=== PATIENT | male | born 1985 | race Caucasian/White ===

== ENCOUNTER 2021-09-29 13:20 | Emergency (ER) | payer BC ==
[2021-09-29 13:32] VITALS: TEMP 98.1
[2021-09-29 14:28] LABS: Partial Thromboplastin Time 23.8 sec (22.0-30.0); Prothrombin Time 10.5 sec (9.0-12.0)
[2021-09-29 14:36] LABS: Basophils % (A) 0 %; Eosinophils # (A) 0.3 k/uL (0-0.7); Eosinophils % (A) 3 %; HCT 46.1 % (39.0-53.0); HGB 16.3 gm/dL (13.0-17.5); Lymphocytes # (A) 2.7 k/uL (1.0-4.8); Lymphocytes % (A) 29 %; MCHC 35.3 g/dL (31.0-37.0); MCV 87.9 fL (80.0-100.0); Mean Platelet Volume 6.5; Monocytes # (A) 0.5 k/uL (0-1.0); Monocytes % (A) 6 %; Neutrophils # (A) 5.5 k/uL (1.3-7.7); Neutrophils % (A) 59 %; Platelet Count 250 k/uL (150-450); RBC 5.25 m/uL (4.30-5.90); RDW 12.6 % (11.5-15.5); WBC 9.4 k/uL (3.8-10.6)
[2021-09-29 14:37] LABS: ALT 93 U/L (4-49); AST 41 U/L (17-59); African American GFR (CKD) >90 (>60 ml/min/1.73 sqM); Albumin 4.9 g/dL (3.5-5.0); Alkaline Phosphatase 54 U/L (38-126); Anion Gap 11 mmol/L; Blood Urea Nitrogen 10 mg/dL (9-20); Calcium 9.6 mg/dL (8.4-10.2); Carbon Dioxide 25 mmol/L (22-30); Chloride 101 mmol/L (98-107); Glucose 74 mg/dL (74-99); Magnesium 2.2 mg/dL (1.6-2.3); Non-African American GFR(CKD) >90 (>60 ml/min/1.73 sqM); Potassium 4.1 mmol/L (3.5-5.1); Sodium 137 mmol/L (137-145); Total Bilirubin 0.9 mg/dL (0.2-1.3); Total Protein 8.1 g/dL (6.3-8.2)
--- NOTE | 2021-09-29 14:38 | XR ---
EXAMINATION TYPE: XR chest 2V DATE OF EXAM: 09/29/2021 COMPARISON: NONE HISTORY: Chest pain TECHNIQUE: Frontal and lateral views of the chest are obtained. FINDINGS: There is no focal air space opacity, pleural effusion, or pneumothorax seen. The cardiac silhouette size is within normal limits. Patient is slightly rotated, there may be spinal curvature. The osseous structures are intact. IMPRESSION: No acute cardiopulmonary process.
--- NOTE | 2021-09-29 14:42 | CT ---
EXAMINATION TYPE: CT brain wo con DATE OF EXAM: 09/29/2021 COMPARISON: none HISTORY: headaches and blurred vision CT DLP: 1084.[address] of the brain was performed. The ventricles, basal cisterns and sulci overlying the cerebral convexities demonstrate a normal appe arance. There is no evidence for intracranial hemorrhage or sulcal effacement. No mass effects are seen. Osseous calvarium is intact. If symptoms persist consider MRI as clinically warranted. IMPRESSION: 1. No acute intracranial process is seen at this time.
[2021-09-29] MEDS ORDERED: SODIUM CHLORIDE 0.9% 1,000 ML IV ONE (15:20)
[2021-09-29] MEDS ORDERED: KETOROLAC 15 MG/ML 1 ML VIAL IVP STA (15:20)
--- NOTE | 2021-09-29 17:05 | ED ---
General Adult HPI - General Chief complaint: Chest Pain Stated complaint: Chest Pain, Arm numbness, Blurry Vision Time Seen by Provider: 09/29/21 13:44 Source: patient, RN notes reviewed, old records reviewed Mode of arrival: wheelchair Limitations: no limitations - History of Present Illness Initial comments: 36-year-old male presenting for evaluation chest pain. Patient states he has a squeezing sensation in the left anterior chest. This been present throughout the day today. He had some associated tingling in the left arm. Additionally complained of headache which was predominantly frontal and retro-orbital. Patient denies any associated vomiting or diaphoresis. He has no previous history of CAD. Patient denies associated dyspnea. - Related Data Home Medications Medication Instructions Recorded Confirmed No Known Home Medications 09/29/21 09/29/21 Allergies Allergy/AdvReac Type Severity Reaction Status Date / Time No Known Allergies Allergy Verified 09/29/21 16:30 Review of Systems ROS Statement: Those systems with pertinent positive or pertinent negative responses have been documented in the HPI. ROS Other: All systems not noted in ROS Statement are negative. Past Medical History Past Medical History: No Reported History Additional Past Medical History / Comment(s): herniated disc Past Surgical History: No Surgical Hx Reported Past Psychological History: Depression Smoking Status: Vaper Past Alcohol Use History: Occasional Past Drug Use History: Marijuana General Exam Limitations: no limitations General appearance: alert, in no apparent distress Head exam: Present: atraumatic, normocephalic Eye exam: Present: normal appearance, PERRL ENT exam: Present: normal exam Neck exam: Present: normal inspection Respiratory exam: Present: normal lung sounds bilaterally. Absent: respiratory distress, wheezes Cardiovascular Exam: Present: regular rate, normal rhythm GI/Abdominal exam: Present: soft. Absent: distended, tenderness, guarding Extremities exam: Present: normal inspection, normal capillary refill. Absent: pedal edema, calf tenderness Neurological exam: Present: alert, oriented X3, CN II-XII intact. Absent: motor sensory deficit Psychiatric exam: Present: normal affect, normal mood Skin exam: Present: warm, dry, intact. Absent: cyanosis, diaphoretic Course Vital Signs 09/29/21 13:29 Temperature 98.1 F Pulse Rate 75 Respiratory 20 Rate Blood Pressure 146/87 O2 Sat by Pulse 98 Oximetry EKG Findings - EKG Comments: EKG Findings:: EKG: Normal sinus rhythm, rate of 70, IA interval 164, QRS duration 104, QTC 375, no ST segment elevation. Medical Decision Making - Medical Decision Making 36-year-old male presenting for evaluation of chest pain. EKG is sinus rhythm without ST segment elevation. Chest x-ray is clear. He has normal initial laboratory tests including CBC, CMP, d-dimer and troponin. I did perform a head CT because this patient was experiencing some headache which is not normal. This was not the worst headache of his life and not a sudden onset headache. Head CT is negative for intracranial hemorrhage or mass effect. I did discuss observation for serial cardiac enzymes, telemetry, cardiology consultation versus repeat troponin emergency department. Patient agrees with repeat troponin. He does not want to be admitted at this time. This is performed and also negative. His pain is not associated with vomiting or diaphoresis. It is not a severe pain. Does have some typical features of this patient will require further evaluation with his primary care physician. He is given strict return parameters. - Lab Data Result diagrams: 09/29/21 13:59 09/29/21 13:59 Lab Results 09/29/21 09/29/21 09/29/21 Range/Units 13:59 13:59 13:59 WBC 9.4 (3.8-10.6) k/uL RBC 5.25 (4.30-5.90) m/uL Hgb 16.3 (13.0-17.5) gm/dL Hct 46.1 (39.0-53.0) % MCV 87.9 (80.0-100.0) fL MCH 31.0 (25.0-35.0) pg MCHC 35.3 (31.0-37.0) g/dL RDW 12.6 (11.5-15.5) % Plt Count 250 (150-450) k/uL MPV 6.5 Neutrophils % 59 % Lymphocytes % 29 % Monocytes % 6 % Eosinophils % 3 % Basophils % 0 % Neutrophils # 5.5 (1.3-7.7) k/uL Lymphocytes # 2.7 (1.0-4.8) k/uL Monocytes # 0.5 (0-1.0) k/uL Eosinophils # 0.3 (0-0.7) k/uL Basophils # 0.0 (0-0.2) k/uL PT 10.5 (9.0-12.0) sec INR 1.0 (<1.2) APTT 23.8 (22.0-30.0) sec D-Dimer 0.21 (<0.60) mg/L FEU Sodium 137 (137-145) mmol/L Potassium 4.1 (3.5-5.1) mmol/L Chloride 101 (98-107) mmol/L Carbon Dioxide 25 (22-30) mmol/L Anion Gap 11 mmol/L BUN 10 (9-20) mg/dL Creatinine 0.82 (0.66-1.25) mg/dL Est GFR (CKD-EPI)AfAm >90 (>60 ml/min/1.73 sqM) Est GFR (CKD-EPI)NonAf >90 (>60 ml/min/1.73 sqM) Glucose 74 (74-99) mg/dL Calcium 9.6 (8.4-10.2) mg/dL Magnesium 2.2 (1.6-2.3) mg/dL Total Bilirubin 0.9 (0.2-1.3) mg/dL AST 41 (17-59) U/L ALT 93 H (4-49) U/L Alkaline Phosphatase 54 (38-126) U/L Troponin I (0.000-0.034) ng/mL Total Protein 8.1 (6.3-8.2) g/dL Albumin 4.9 (3.5-5.0) g/dL 09/29/21 09/29/21 Range/Units 13:59 16:03 WBC (3.8-10.6) k/uL RBC (4.30-5.90) m/uL Hgb (13.0-17.5) gm/dL Hct (39.0-53.0) % MCV (80.0-100.0) fL MCH (25.0-35.0) pg MCHC (31.0-37.0) g/dL RDW (11.5-15.5) % Plt Count (150-450) k/uL MPV Neutrophils % % Lymphocytes % % Monocytes % % Eosinophils % % Basophils % % Neutrophils # (1.3-7.7) k/uL Lymphocytes # (1.0-4.8) k/uL Monocytes # (0-1.0) k/uL Eosinophils # (0-0.7) k/uL Basophils # (0-0.2) k/uL PT (9.0-12.0) sec INR (<1.2) APTT (22.0-30.0) sec D-Dimer (<0.60) mg/L FEU Sodium (137-145) mmol/L Potassium (3.5-5.1) mmol/L Chloride (98-107) mmol/L Carbon Dioxide (22-30) mmol/L Anion Gap mmol/L BUN (9-20) mg/dL Creatinine (0.66-1.25) mg/dL Est GFR (CKD-EPI)AfAm (>60 ml/min/1.73 sqM) Est GFR (CKD-EPI)NonAf (>60 ml/min/1.73 sqM) Glucose (74-99) mg/dL Calcium (8.4-10.2) mg/dL Magnesium (1.6-2.3) mg/dL Total Bilirubin (0.2-1.3) mg/dL AST (17-59) U/L ALT (4-49) U/L Alkaline Phosphatase (38-126) U/L Troponin I <0.012 <0.012 (0.000-0.034) ng/mL Total Protein (6.3-8.2) g/dL Albumin (3.5-5.0) g/dL Disposition Clinical Impression: Chest pain Disposition: HOME SELF-CARE Condition: Good Instructions (If sedation given, give patient instructions): Chest Pain (ED) Additional Instructions: Please follow up with your primary care physician for further evaluation. Please return the emergency department with worsening or changing chest pain. Is patient prescribed a controlled substance at d/c from ED?: No Referrals: Amparo Lira MD [Primary Care Provider] - 1-2 days Time of Disposition: 17:05
[2021-09-29 17:19] VITALS: BP 141/68; PULSE 77; RESP 18
== END 2021-09-29 17:19 | disposition home or self-care (01) ==
LOC: EC 13:20
DX: R07.89 Other chest pain (principal); F17.290 Nicotine dependence, other tobacco product, uncomplicated; F12.90 Cannabis use, unspecified, uncomplicated
CPT/HCPCS: 36415; 93005; 85379; 80053; 83735; 84484; 85025; 85610; 85730; 71046; 70450; 99285; 96374; 96361 ×2; J1885